=== PATIENT | male | born 1925 | race Caucasian/White ===

== ENCOUNTER → 2016-08-30 10:03 | Outpatient (CLI) | payer MEDICARE, OTHER | END | disposition home or self-care (01) | LOC: D.US 08-29 13:30 | DX: R60.0 Localized edema (principal) ==

== ENCOUNTER 2016-09-24 14:47 | Emergency (ER) | payer MEDICARE, OTHER ==
[2016-09-24 15:48] LABS: BASOPHILS 0.2 % (0-2); EOSINOPHILS 1.5 % (0-7); HEMATOCRIT 41.5 % (42.0-54.0); HEMOGLOBIN 13.8 g/dL (13.5-17.5); IMMATURE GRANULOCYTES 0.4 % (0-5); MCH 34.8 pg (26.0-34.0); MCHC 33.3 g/dL (31.0-37.0); MCV 104.8 fL (80.0-100.0); MEAN PLATELET VOLUME 10.8 fL (7.4-10.4); MONOCYTES 10.4 % (2-11); NEUTROPHILS 55.5 % (40-80); RBC 3.96 10x6/uL (4.20-6.10); RDW 14.9 % (11.5-14.5); WBC 12.2 10x3/uL (4.8-10.8)
[2016-09-24 15:49] LABS: PLATELET COUNT 150 10x3/uL (130-400)
[2016-09-24 16:05] LABS: INR 4.62 (0.85-1.17); PROTIME 44.4 SECONDS (11.6-15.0)
[2016-09-24 16:12] LABS: ANION GAP 11.4 mmol/L (8-16); CALCIUM 8.8 mg/dL (8.5-10.1); CARBON DIOXIDE 29.7 mmol/L (21.0-32.0); CREATININE - SERUM 1.6 mg/dL (0.6-1.3); POTASSIUM - SERUM 4.1 mmol/L (3.5-5.1)
== END 2016-09-24 17:47 | disposition home or self-care (01) ==
LOC: D.ER 14:47
PROVIDERS: Family Medicine
DX: L03.115 Cellulitis of right lower limb (principal); T45.515A Adverse effect of anticoagulants, initial encounter; Y92.89 Other specified places as the place of occurrence of the external cause; Z95.0 Presence of cardiac pacemaker